=== PATIENT | female | born 1960 | race Caucasian/White ===

== ENCOUNTER 2020-08-30 22:09 | Emergency (ER) | payer BC ==
[~2020-08-30] VITALS: Ht 170.2 cm; Wt 136.1 kg
[2020-08-30] MEDS ORDERED: VENL25 (22:35)
[2020-08-30] MEDS ORDERED: EUTHYROX50 MCG (22:35)
[2020-08-30 22:57] LABS: BASOPHILS ABSOLUTE AUTO 0.03 K/mm3 (0.00-0.23); BASOPHILS PERCENT AUTO 1 % (0-2); EOSINOPHILS PERCENT AUTO 0 % (0-6); Hematocrit 45.1 % (33.0-51.0); Hemoglobin 14.7 g/dL (11.5-16.0); IMMATURE GRAN ABSOLUTE AUTO 0.07 K/mm3 (0.00-0.10); IMMATURE GRAN PERCENT AUTO 1 % (0-1); LYMPHOCYTES ABSOLUTE AUTO 1.47 K/mm3 (0.84-5.20); LYMPHOCYTES PERCENT AUTO 27 % (21-46); MONOCYTES ABSOLUTE AUTO 0.44 K/mm3 (0.16-1.47); MONOCYTES PERCENT AUTO 8 % (4-13); Mean Corpuscular HGB 28.2 pg (26.0-34.0); Mean Corpuscular HGB Conc 32.6 g/dL (31.5-36.5); Mean Corpuscular Volume 86 fL (80-100); Mean Platelet Volume 11.2 fL (9.1-12.4); NEUTROPHILS ABSOLUTE AUTO 3.38 K/mm3 (1.96-9.15); NEUTROPHILS PERCENT AUTO 63 % (41-73); Platelet Count 165 K/mm3 (150-400); RDW Coefficient Variation 13.6 % (11.7-14.2); RDW Standard Deviation 43.7 fL (35.1-46.3); Red Blood Cell Count 5.22 M/mm3 (3.80-5.20); White Blood Cell Count 5.39 K/mm3 (4.00-11.30)
[2020-08-30 23:18] LABS: Alanine Aminotransfer (ALT/SGP 33 U/L (12-78); Albumin, Blood 3.1 g/dL (3.4-5.0); Albumin/Globulin Ratio 0.8 (0.8-1.8); Alk Phos 79 U/L (50-136); Anion Gap 8 mmol/L (6-16); Aspartate Aminotrans (AST/SGOT 26 U/L (12-37); Bilirubin, Total 0.4 mg/dL (0.1-1.0); Blood Urea Nitrogen 21 mg/dL (8-24); Bun/Creatinine Ratio 18.8 (12.0-20.0); CO2, Blood 25 mmol/L (21-32); Calcium, Blood 8.2 mg/dL (8.5-10.1); Chloride, Blood 103 mmol/L (98-108); Creatinine, Blood 1.12 mg/dL (0.40-1.00); Globulin, Blood 3.7 g/dL (2.2-4.0); Glomerular Filtration Rate 53 (60-); Glucose, Blood 145 mg/dL (70-99); Potassium, Blood 4.2 mmol/L (3.5-5.5); Sodium, Blood 136 mmol/L (136-145); Total Protein, Blood 6.8 g/dL (6.4-8.2); Troponin I <0.015 ng/mL (0.000-0.040)
== END 2020-08-31 01:45 | disposition home or self-care (01) ==
LOC: ER 22:09
PROVIDERS: Student in an Organized Health Care Education/Training Program
DX: U07.1 COVID-19 (principal); R09.02 Hypoxemia; R53.1 Weakness; Z88.0 Allergy status to penicillin; Z88.1 Allergy status to other antibiotic agents; Z79.899 Other long term (current) drug therapy
CPT/HCPCS: 71045; 80053; 84484; 85025; 93005; 93010; 99285-25; J7120

== ENCOUNTER 2020-09-05 18:34 | Inpatient (IN) | payer BC ==
[~2020-09-05] VITALS: Ht 170.2 cm; Wt 134.5 kg
[~2020-09-05 18:34] MED LIST: EUTHYROX50 MCG; VENL25
[2020-09-05 20:07] LABS: BASOPHILS ABSOLUTE AUTO 0.04 K/mm3 (0.00-0.23); BASOPHILS PERCENT AUTO 1 % (0-2); EOSINOPHILS ABSOLUTE AUTO 0.02 K/mm3 (0.00-0.68); EOSINOPHILS PERCENT AUTO 0 % (0-6); Hematocrit 44.8 % (33.0-51.0); Hemoglobin 14.4 g/dL (11.5-16.0); IMMATURE GRAN ABSOLUTE AUTO 0.09 K/mm3 (0.00-0.10); IMMATURE GRAN PERCENT AUTO 2 % (0-1); LYMPHOCYTES ABSOLUTE AUTO 1.66 K/mm3 (0.84-5.20); LYMPHOCYTES PERCENT AUTO 27 % (21-46); MONOCYTES ABSOLUTE AUTO 0.33 K/mm3 (0.16-1.47); MONOCYTES PERCENT AUTO 5 % (4-13); Mean Corpuscular HGB 27.7 pg (26.0-34.0); Mean Corpuscular HGB Conc 32.1 g/dL (31.5-36.5); Mean Corpuscular Volume 86 fL (80-100); NEUTROPHILS ABSOLUTE AUTO 4.02 K/mm3 (1.96-9.15); NEUTROPHILS PERCENT AUTO 65 % (41-73); RDW Coefficient Variation 13.7 % (11.7-14.2); RDW Standard Deviation 43.5 fL (35.1-46.3); Red Blood Cell Count 5.19 M/mm3 (3.80-5.20); White Blood Cell Count 6.16 K/mm3 (4.00-11.30)
[2020-09-05 20:10] LABS: Platelet Count 131 K/mm3 (150-400)
[2020-09-05 21:06] LABS: Alanine Aminotransfer (ALT/SGP 25 U/L (12-78); Albumin, Blood 2.7 g/dL (3.4-5.0); Albumin/Globulin Ratio 0.6 (0.8-1.8); Alk Phos 74 U/L (50-136); Anion Gap 6 mmol/L (6-16); Aspartate Aminotrans (AST/SGOT 32 U/L (12-37); Bilirubin, Total 0.4 mg/dL (0.1-1.0); Blood Urea Nitrogen 20 mg/dL (8-24); Bun/Creatinine Ratio 20.5 (12.0-20.0); CO2, Blood 31 mmol/L (21-32); Chloride, Blood 97 mmol/L (98-108); Creatinine, Blood 0.98 mg/dL (0.40-1.00); Globulin, Blood 4.3 g/dL (2.2-4.0); Glomerular Filtration Rate >60 (60-); Glucose, Blood 107 mg/dL (70-99); Potassium, Blood 3.8 mmol/L (3.5-5.5); Sodium, Blood 134 mmol/L (136-145)
[2020-09-05] MEDS ORDERED: SYNTHROID125 MC1 PO (21:18)
[2020-09-05] MEDS ORDERED: VENL75ER PO (21:18)
[2020-09-05 23:38] LABS: SARS-Cov-2 (COVID-19) PCR, MMC Positive (NEGATIVE)
[2020-09-05 23:39] LABS: Influenza A, PCR Negative (NEGATIVE); Influenza B, PCR Negative (NEGATIVE); Resp Syncytial Virus, PCR Negative (NEGATIVE)
--- NOTE | 2020-09-06 02:40 | NUR ---
ASSESSMENT/ADMIT 2320 PT ARRIVED VIA GURNEY TO ICU 05. DX PNEUMONIA, COVID. TRANSFERED TO BED BY STAFF WITH SLIDER SHEET. PT AWAKE AND A&O X4. SPEECH CLEAR. LUNGS COARSE AND DECREASED IN THE BASES. PT ON 5 LITER O2 VIA NC, WITH SPO2 83%. RT PLACED PT ON HIGH FLOW NC THAN CHANGED TO AIRVO 60 LITER 71%. SPO2 UP TO 94%. PT WITH NPC. HEART RATE REGULAR. BP STABLE. IV LEFT HAND 20G SALINE LOCKED, SITE CLEAR AND FLUSHED WITHOUT DIFFICULTY. IV 20G TO RIGHT FOREARM FLUSHED WITHOUT DIFFICULTY. NS AT 75 ML/HR FOR ONE LITER STARTED. TEMP 102.1, MED WITH TYLENOL. 0015 PT SELF PRONING WITH AIRVO ON. SPO2 94-96%. 0230 PT CONT TO SELF PRONE. AIRVO DOWN TO 60 LITERS 60%.
[2020-09-06 03:30] LABS: BASOPHILS ABSOLUTE AUTO 0.02 K/mm3 (0.00-0.23); BASOPHILS PERCENT AUTO 0 % (0-2); EOSINOPHILS PERCENT AUTO 0 % (0-6); Hematocrit 40.3 % (33.0-51.0); IMMATURE GRAN ABSOLUTE AUTO 0.09 K/mm3 (0.00-0.10); IMMATURE GRAN PERCENT AUTO 2 % (0-1); LYMPHOCYTES ABSOLUTE AUTO 0.88 K/mm3 (0.84-5.20); LYMPHOCYTES PERCENT AUTO 14 % (21-46); MONOCYTES ABSOLUTE AUTO 0.31 K/mm3 (0.16-1.47); MONOCYTES PERCENT AUTO 5 % (4-13); Mean Corpuscular HGB Conc 32.3 g/dL (31.5-36.5); Mean Corpuscular Volume 87 fL (80-100); Mean Platelet Volume 10.7 fL (9.1-12.4); NEUTROPHILS ABSOLUTE AUTO 4.83 K/mm3 (1.96-9.15); NEUTROPHILS PERCENT AUTO 79 % (41-73); Platelet Count 237 K/mm3 (150-400); RDW Coefficient Variation 13.7 % (11.7-14.2); RDW Standard Deviation 43.1 fL (35.1-46.3); Red Blood Cell Count 4.65 M/mm3 (3.80-5.20); White Blood Cell Count 6.13 K/mm3 (4.00-11.30)
[2020-09-06 03:47] LABS: Alanine Aminotransfer (ALT/SGP 23 U/L (12-78); Albumin, Blood 2.4 g/dL (3.4-5.0); Albumin/Globulin Ratio 0.6 (0.8-1.8); Alk Phos 70 U/L (50-136); Anion Gap 7 mmol/L (6-16); Aspartate Aminotrans (AST/SGOT 25 U/L (12-37); Bilirubin, Total 0.4 mg/dL (0.1-1.0); Blood Urea Nitrogen 19 mg/dL (8-24); Bun/Creatinine Ratio 19.5 (12.0-20.0); CO2, Blood 28 mmol/L (21-32); Calcium, Blood 8.7 mg/dL (8.5-10.1); Chloride, Blood 101 mmol/L (98-108); Creatinine, Blood 0.98 mg/dL (0.40-1.00); Globulin, Blood 4.3 g/dL (2.2-4.0); Glomerular Filtration Rate >60 (60-); Glucose, Blood 170 mg/dL (70-99); Potassium, Blood 4.4 mmol/L (3.5-5.5); Sodium, Blood 136 mmol/L (136-145); Total Protein, Blood 6.7 g/dL (6.4-8.2)
--- NOTE | 2020-09-06 05:54 | NUR ---
SHIFT SUMMARY PT ADMITTED TO ICU DURING THE NIGHT. A&O. SELF PRONINNG. PLACED ON AIRVO TO KEEP SPO2 ABOVE 90%. AIRVO CURRENTLY AT 55 LITERS AND 50%. LUNGS COARSE AND DECREASED. NONPRODUCTIVE COUGH. HEART RATE AND BP STABLE. PT HAD FEVER 102.1, MED WITH TYLENOL. NOW TEMP 96.9. PT TURNING AND MOVING SELF IN BED. IV FLUID NS AT 75 ML/HR INFUSING FOR ONE LITER. PT SLEEPING ON SIDE AT THIS TIME. REPORT TO ON COMING NURSE
--- NOTE | 2020-09-06 08:45 | NUR ---
ASSUMED CARE RECEIVED REPORT FROM GENI FULLER - WHO GOT REPORT FROM GENI LUNA. PT IS LYING AWAKE IN BED, SUPINE - JUST BEFORE COMING INTO ROOM PT WAS HAVING PERIODS OF DESATTING (SPO2 DOWN TO LOW-MID 80s) THAT WOULD COME RIGHT BACK UP TO THE LOW 90s% RANGE. POSSIBLE SLEEP APNEA. SHE IS ALERT AND ORIENTED X 4, C/O COUGH, PAIN ASSOCIATED WITH COUGH (RELIEVED BY NOT COUGHING), SHORTNESS OF BREATH WITH EXERTION, AND EVEN MILD SOB AT REST. STABLE VITALS, MAP > 65, SPOW > 90% AT REST. AIRVO IS ON AT 55L, 50% FIO2. BED LOW AND LOCKED. CALL LIGHT WITHIN REACH.
--- NOTE | 2020-09-06 10:13 | NUR ---
UPDATE PT WAS REPOSITIONED IN BED, BOOSTED, AND SITTING UP CURRENTLY, PER PT REQUEST. AFTER REPOSITIONING AND USING THE BED PRITCHETT (VOIDING GABRIEL URINE) PT SPO2 DID DROP TO THE 79-85% RANGE - SHE DID INCREASE HER RR FROM 18-23 TO 25-30; TO GIVE HER SOME MORE SUPPORT THE FIO2 WAS INCREASED TO 60%. SPO2 RECOVERED AFTER A FEW MINUTES TO 88-90%, AND IS NOW CURRENTLY 94-96%. PT IS OPEN TO A PRONING SCHEDULE, BUT HAS STATED THAT IT IS NOT COMFORTABLE FOR HER. PT EDUCATED ON THE BENEFITS OF PRONING. CURRENTLY DEVELOPING A "PRONING SCHEDULE" AT THIS MOMENT. PT CONTINUES TO DENY CHEST PAIN UNLESS COUGHING. COUGH HAS BEEN FAIRLY DRY AND SHE HAS ONLY COUGHED UP MINIMAL CLEAR, THIN SPUTUM - SAMPLE SENT TO LAB. NO BM OF YET. BED LOW AND LOCKED. CALL LIGHT WITHIN REACH.
--- NOTE | 2020-09-06 15:55 | NUR ---
UPDATE PT ASSISTED IN PRONE POSITIONING AT 1410, ELECTRODES PLACED ON BACK. SHE IS ON AIRVO 55L, FIO2 60% - SPO2 IS CURRENTLY 92-94%. INITIALLY PT WAS DESATTING WITH REPOSITIONING AND THE BATH, DOWN TO SPO2 789-85% -- FIO2 WAS TURNED UP TO 70%, BUT WHEN PT GOT SETTLED IN THE PRONE POSITIONING AND WAS RESTING HER SPO2 INCREASED QUICKLY TO THE LOW TO MID 90s - SO FIO2 DECREASED TO 60% BY RT. PT TOLERATING IT WELL, BUT WOULD PREFER TO BE ON HER SIDE. WILL CONTINUE TO MONITOR.
--- NOTE | 2020-09-06 17:48 | NUR ---
SHIFT SUMMARY NO MAJOR CHANGES T/O SHIFT. PT ON AIRVO 55L, 60% FIO2 -- SPO2 MAINLY IN THE LOW 90s%. DYSPNEIC WITH EXERTION & WILL DESAT INTO 78-85% RANGE, BUT DOES RECOVER AFTER SEVERAL MINUTES OF REST AND DEEP BREATHING, WILL OFTEN NEED REMINDERS. SHE HAS A DRY, NONPRODUCTIVE COUGH THAT DOES GIVE HER DISCOMFORT /CHEST PAIN AND SHE WILL OFTEN COUGH MORE WHEN SHE IS REPOSITIONING. WHEN SHE IS DYSPNEIC HER RR WILL INCREASE TO 25-35. HEMODYNAMICS ARE STABLE, HR 80-90s, MAP > 65, SPO2 PLETH LOOKS GREAT. PT HAS USED BEDPAN TWICE TODAY FOR A TOTAL OF 650 ML OF URINE OUTPUT, AND A SMALL SOFT/UNFORMED/BROWN BM, WHICH IS A CHANGE FROM HER PREVIOUS WATER BMs AT HOME THIS LAST WEEK OR SO. PT SOMETIMES C/O OF SCIATICA, THAT RADIATES DOWN HER RLE - BUT HAS BEEN DENYING ANY PAIN T/O DAY. SHE HAS PREVIOUSLY HAD GOUT IN HER LEFT BIG TOE, AND WAS ON A MEDICATION - THAT SHE CANT REMEMBER FOR A TEMPORARY PERIOD OF TIME - CURRENTLY DENIES PAIN IN THE TOE. SHE HAS HAD A VERY POOR APPETITE, BUT WAS ABLE TO EAT SOME FOR LUNCH, INCLUDING ENSURE ENLIVE AND YOGURT. DR. GATES ORDERED MELATONIN FOR BEDTIME PT HAS BEEN HAVING ISSUES WITH SLEEP THIS LAST WEEK, AND ESPECIALLY LAST NIGHT. SHE CAN REPOSITION HERSELF, BUT WHEN SHE PRONES - SHE DOES NEED HELP MANAGING HER CHORDS, TELLY ELECTRODES, ETC... TODAY SHE PRONED FROM [id number], TOLERATING IT VERY WELL SPO2 93-94%. PT HAD TO USE BATHROOM AND AFTER WAS POSITIONED ON HER LEFT SIDE DUE TO PT REQUEST/COMFORT. SPO2 CURRENTLY 89-90% (AFTER SEVERAL MINUTES OF RECOVERY AFTER DESATTING D/T REPOSITIONING/USING THE BED). AND PT DID DISCUSS PLAN OF CARE TODAY WITH DR. GATES. SHE HAS BEEN HAVING A TOUGH TIME TODAY, BUT COPING WELL MENTALLY FAR I CAN TELL, HAVING A GOOD MINDSET, PRAYING, AND STILL HAS HER SENSE OF HUMOR - PER ON THE PHONE CALL. BED LOW AND LOCKED. CALL LIGHT WITHIN REACH.
--- NOTE | 2020-09-06 19:15 | NUR ---
ASSUMPTION OF CARE RECIEVED REPORT FROM BECKIE ARECHIGA, ASSUMED CARE OF PATIENT. PATIENT A/O, LAYING ON LEFT SIDE. DENYING DISCOMFORTS, NO S/S OF RESP DISTRESS. AIRVO IN PLACE AT 50L 60%, SATS ABOVE 90%. FULL LIQUID DINNER TRAY PROVIDED. PATIENT INDEPENDENTLY FEEDING SELF WITH NO CONCERNS. VITALS STABLE, ORIENTED TO ROUNDING AND CALL LIGHT. WILL REVIEW ORDERS AND TREAT PRESCRIBED.
--- NOTE | 2020-09-06 21:02 | NUR ---
02 SATS PATIENT WITH SATS MAINTAINING AT 85%, REPOSITIONED TO RIGHT SIDE, PATIENT TOLERATED WELL. SATS INCREASED TO 92%, NO CHANGES TO AIRVO SETTINGS.
--- NOTE | 2020-09-07 | NUR ---
REASSESSMENT NO ACUTE CHANGES FROM PREVIOUS ASSESSMENT. PATIENT REMAINS IN PRONE POSITION, TOLERATING WELL. AIRVO REMAINS AT 50L, 60%. VITAL STABLE. CALL LIGHT IN REACH.
[2020-09-07 03:36] LABS: Hematocrit 39.8 % (33.0-51.0); Hemoglobin 12.9 g/dL (11.5-16.0); Mean Corpuscular HGB 27.8 pg (26.0-34.0); Mean Corpuscular HGB Conc 32.4 g/dL (31.5-36.5); Mean Corpuscular Volume 86 fL (80-100); RDW Standard Deviation 40.6 fL (35.1-46.3); Red Blood Cell Count 4.64 M/mm3 (3.80-5.20); White Blood Cell Count 7.58 K/mm3 (4.00-11.30)
[2020-09-07 03:39] LABS: Mean Platelet Volume 11.6 fL (9.1-12.4); Platelet Count 59 K/mm3 (150-400)
[2020-09-07 03:50] LABS: Anion Gap 6 mmol/L (6-16); Blood Urea Nitrogen 22 mg/dL (8-24); Bun/Creatinine Ratio 25.7 (12.0-20.0); CO2, Blood 28 mmol/L (21-32); Calcium, Blood 8.3 mg/dL (8.5-10.1); Chloride, Blood 105 mmol/L (98-108); Creatinine, Blood 0.86 mg/dL (0.40-1.00); Glomerular Filtration Rate >60 (60-); Glucose, Blood 159 mg/dL (70-99); Potassium, Blood 4.6 mmol/L (3.5-5.5); Sodium, Blood 139 mmol/L (136-145)
--- NOTE | 2020-09-07 04:00 | NUR ---
REASSESSMENT NO ACUTE CHANGES FROM PREVIOUS ASSESSMENT. PATIENT TOLERATED PRONING WELL, REPOSITIONED ON SIDES FOR COMFORT. MAINTAINING SATS WITH NO CHANGES TO AIRVO. PATIENT DENIES NEEDS, CALL LIGHT IN REACH.
--- NOTE | 2020-09-07 06:22 | NUR ---
SHIFT SUMMARY NO ACUTE CHANGES THROUGH SHIFT. AIRVO SETTINGS 55L, 60%. SATS AT 94%. PATIENT DECLINED TO PRONE AGAIN FOR THIS SHIFT, BUT HAS TOLERATED LAYING ON HER SIDES. VITALS HAVE REMAINED STABLE THROUGH SHIFT, MEDICATIONS PROVIDED CHARTED. IVF INFUSING ORDERED. WILL CONTINUE TO MONITOR AND REPORT TO ONCOMING RN.
--- NOTE | 2020-09-07 06:50 | NUR ---
PRONING PRONED PATIENT AT 0645, TOLERATING WELL, SATS AT 93%. CALL LIGHT IN REACH.
--- NOTE | 2020-09-07 09:30 | NUR ---
PT UP TO CHAIR WITH ONE PERSON ASSIST. ON AIRVO. HAD TO INCREASE TO FIO2 70% FOR EXERTION. SPO2 DROPS INTO 80'S BUT WHEN PT IS RELAXED IN THE CHAIR IT COMES UP TO 90'S. NO SIGN OF DISTRESS.
--- NOTE | 2020-09-07 18:07 | NUR ---
SUMMARY PT DID WELL TODAY. WAS ABLE TO SIT IN CHAIR PART OF THE DAY. REQUIRES 70% FIO2 WHILE IN CHAIR, BUT AFTER GOING BACK TO BED WAS ABLE TO TITRATE FIO2 BACK DOWN TO 60%. PT IS SELF PRONING WHILE IN BED AND WILL ADJUST FROM SIDE TO SIDE. NO OTHER CHANGES TODAY.
--- NOTE | 2020-09-07 19:15 | NUR ---
ASSUMPTION OF CARE RECIEVED REPORT FROM JOY ARECHIGA, ASSUMED CARE OF PATIENT. PATIENT A/O, IN BED FINISHING DINNER. AIRVO IN PLACE WITH SETTINGS 55L AND 60%, SATS IN LOW 80'S. VITALS OTHERWISE STABLE. PATIENT DENYING NEEDS OR DISCOMFORTS, STATES FEELS MUCH BETTER TODAY. CELL PHONE PROVIDED TO PATIENT AND PATIENT TOLERATED A PHONE CONVERSATION WITH . WILL REVIEW ORDERS AND TREAT PRESCRIBED. CALL LIGHT IN REACH.
--- NOTE | 2020-09-08 | NUR ---
REASSESSMENT NO ACUTE CHANGES FROM PREVIOUS ASSESSMENT. PATIENT CONTINUES PRONING, TOLERATING WELL. VITALS STABLE AIRVO TO 55L, 60%. CALL LIGHT IN REACH.
[2020-09-08 03:36] LABS: BASOPHILS ABSOLUTE AUTO 0.01 K/mm3 (0.00-0.23); BASOPHILS PERCENT AUTO 0 % (0-2); EOSINOPHILS PERCENT AUTO 0 % (0-6); Hematocrit 38.7 % (33.0-51.0); Hemoglobin 12.4 g/dL (11.5-16.0); IMMATURE GRAN ABSOLUTE AUTO 0.19 K/mm3 (0.00-0.10); IMMATURE GRAN PERCENT AUTO 2 % (0-1); LYMPHOCYTES ABSOLUTE AUTO 1.09 K/mm3 (0.84-5.20); LYMPHOCYTES PERCENT AUTO 13 % (21-46); MONOCYTES ABSOLUTE AUTO 0.47 K/mm3 (0.16-1.47); MONOCYTES PERCENT AUTO 6 % (4-13); Mean Corpuscular HGB 27.8 pg (26.0-34.0); Mean Corpuscular Volume 87 fL (80-100); Mean Platelet Volume 10.4 fL (9.1-12.4); NEUTROPHILS ABSOLUTE AUTO 6.59 K/mm3 (1.96-9.15); NEUTROPHILS PERCENT AUTO 79 % (41-73); Platelet Count 355 K/mm3 (150-400); RDW Coefficient Variation 13.2 % (11.7-14.2); RDW Standard Deviation 41.7 fL (35.1-46.3); Red Blood Cell Count 4.46 M/mm3 (3.80-5.20); White Blood Cell Count 8.35 K/mm3 (4.00-11.30)
[2020-09-08 03:58] LABS: Anion Gap 4 mmol/L (6-16); Blood Urea Nitrogen 21 mg/dL (8-24); Bun/Creatinine Ratio 23.8 (12.0-20.0); CO2, Blood 28 mmol/L (21-32); Calcium, Blood 8.3 mg/dL (8.5-10.1); Chloride, Blood 106 mmol/L (98-108); Creatinine, Blood 0.88 mg/dL (0.40-1.00); Glomerular Filtration Rate >60 (60-); Glucose, Blood 139 mg/dL (70-99); Potassium, Blood 4.6 mmol/L (3.5-5.5); Sodium, Blood 138 mmol/L (136-145)
--- NOTE | 2020-09-08 04:00 | NUR ---
REASSESSMENT NO ACUTE CHANGES FROM PREVIOUS ASSESSMENT. PATIENT STANDBY ASSIST TO COMMODE, TOLERATED WELL. PRODUCTIVE COUGH WITH ACTIVITY, SATS MAINTAINED 90% WITHOUT AN INCREASE IN AIRVO SETTINGS. VITALS REMAIN STABLE. CALL LIGHT IN REACH.
[2020-09-08 04:48] LABS: PCO2 Arterial 42.6 mmHg (35-45); PO2 Arterial 47.8 mmHg (80-100); pH Blood Arterial 7.41 (7.35-7.45)
--- NOTE | 2020-09-08 06:13 | NUR ---
SHIFT SUMMARY ASSESSMENT REMAINED UNCHANGED THROUGH NIGHT. AIRVO SETTINGS INCREASED AFTER ABG RESULTS TO 70%. VITALS REMAINED STABLE THROUGH NIGHT. PATIENT TOLERATED TWO ASSISTS TO COMMODE. DESATS WITH ACTIVITY BUT RECOVERS QUICKLY. PATIENT DENIES DISCOMFORTS OR NEEDS. CALL LIGHT IN REACH. WILL REPORT TO ONCOMING RN.
--- NOTE | 2020-09-08 10:25 | NUR ---
PT A/O X4, ON AIRVO 50L FIO2 70%. SPO2 DROPS TO 85% WITH ANY EXERTION BUT IS RECOVERING WELL AT REST. GOT PT UP TO BSC THEN RECLINER CHAIR. PT ABLE TO BRUSH HER TEETH. NO SIGN OF DISTRESS. CALL LIGHT IN REACH.
--- NOTE | 2020-09-08 18:54 | NUR ---
SUMMARY PT HAD A GOOD DAY. GOT UP TO CHAIR FOR AWHILE AND TOLERATED WELL. ABLE TO TITRATE AIRVO DOWN TO 50L 60%. HAS NOT PRONED YET TODAY BUT STATES SHE WILL TONIGHT. NO SIGN OF DISTRESS. NO OTHER CHANGES.
--- NOTE | 2020-09-09 00:14 | NUR ---
ASSUMED CARE NOTE: ASSUMED CARE OF PT AT 1900, RECEVIED REPORT FROM BECKIE ARECHIGA. PT IS ALERT AND ORIENTEDX4, ABLE TO FOLLOW COMMANDS. PT IS ON THE AIRVO 60L, 70% FiO2, SPO2 92% PT IS UP IN THE CHAIR. PT EXPERIENCES DYSPNEA WITH ACTIVITY. PT REQUIRES FiO2 TO BE INCREASED TO 80% WHEN AMBULATING. PT IS IN NSR WITH HR IN THE 70'S. BP STABLE. PT STS SHE HAS DULL RIB PAIN, DUE TO COUGHING. IS REQUESTING ACETAMIOPHEN AND MELATONIN AT 2200 FOR SLEEP AND TO AID WITH PRONING. WILL CONTINUE TO MONITOR PT.
[2020-09-09 04:47] LABS: BASOPHILS ABSOLUTE AUTO 0.05 K/mm3 (0.00-0.23); BASOPHILS PERCENT AUTO 1 % (0-2); EOSINOPHILS ABSOLUTE AUTO 0.01 K/mm3 (0.00-0.68); EOSINOPHILS PERCENT AUTO 0 % (0-6); Hematocrit 40.5 % (33.0-51.0); Hemoglobin 13.2 g/dL (11.5-16.0); IMMATURE GRAN ABSOLUTE AUTO 0.47 K/mm3 (0.00-0.10); IMMATURE GRAN PERCENT AUTO 5 % (0-1); LYMPHOCYTES ABSOLUTE AUTO 1.29 K/mm3 (0.84-5.20); LYMPHOCYTES PERCENT AUTO 13 % (21-46); MONOCYTES ABSOLUTE AUTO 0.52 K/mm3 (0.16-1.47); MONOCYTES PERCENT AUTO 5 % (4-13); Mean Corpuscular HGB 27.7 pg (26.0-34.0); Mean Corpuscular HGB Conc 32.6 g/dL (31.5-36.5); Mean Corpuscular Volume 85 fL (80-100); Mean Platelet Volume 10.2 fL (9.1-12.4); NEUTROPHILS ABSOLUTE AUTO 7.45 K/mm3 (1.96-9.15); NEUTROPHILS PERCENT AUTO 76 % (41-73); Platelet Count 412 K/mm3 (150-400); RDW Coefficient Variation 12.9 % (11.7-14.2); Red Blood Cell Count 4.77 M/mm3 (3.80-5.20); White Blood Cell Count 9.79 K/mm3 (4.00-11.30)
[2020-09-09 05:02] LABS: Anion Gap 5 mmol/L (6-16); Blood Urea Nitrogen 22 mg/dL (8-24); Bun/Creatinine Ratio 25.5 (12.0-20.0); CO2, Blood 28 mmol/L (21-32); Calcium, Blood 8.4 mg/dL (8.5-10.1); Chloride, Blood 102 mmol/L (98-108); Creatinine, Blood 0.86 mg/dL (0.40-1.00); Glomerular Filtration Rate >60 (60-); Glucose, Blood 139 mg/dL (70-99); Potassium, Blood 4.3 mmol/L (3.5-5.5); Sodium, Blood 135 mmol/L (136-145)
--- NOTE | 2020-09-09 06:16 | NUR ---
SHIFT SUMMARY PT A&O X4, PLEASANT & COOPERATIVE. PT VSS. MONITOR SHOWS SB-SR, HR 50's-60's. SPO2 > 90% ON AIRVO @ 50L, FIO2 60%. PT SOB W/ ANY ACTIVITY. FIO2 INCREASED TO 75% FOR PT TRANSFER [place] [facility] [place]AT TO 83%, THEN TITRATED BACK TO 60% UPON RECOVERY WHEN BACK IN BED. PT PRONING FOR APPROX 5 HRS THIS SHIFT, TOLERATING WELL. WILL CONTINUE TO MONITOR & PROVIDE CARE UNTIL REPORT OFF TO DAY SHIFT RN.
--- NOTE | 2020-09-09 08:22 | NUR ---
ASSUMED CARE RECEIVED REPORT FROM GENI BLAKE. PT IS SLEEPING IN BED ON AIRVO 50L, 60% FIO2. SHE IS IN SINUS MICHEAL, HR 50s. SPO2 IS IN THE HIGH 90s. SHE APPEARS COMFORTABLE AT THE PRESENT TIME. BED LOW AND LOCKED. CALL LIGHT WITHIN REACH.
--- NOTE | 2020-09-09 09:21 | NUR ---
UPDATE PT UP TO COMMODE AND BACK TO BED, DESATTING INTO THE LOW 80s% DOING SO, REQUIRING FIO2 TO BE TURNED UP TO 70% AFTER GETTING BACK TO BED AND RESTING SPO2 DID RECOVER TO 88-91%. PT NOW EATING BREAKFAST, FIO2 REMAINS AT 70% WHILE PT EATS - WILL TITRATE DOWN SOON POSSIBLE. PT C/O SORENESS IN RIBS/SIDES FROM COUGHING, BUT IS SAYING THE CHEST PAIN SHE GOT WHILE COUGHING HAS DECREASED THE LAST DAY OR SO. PT IS ALERT AND ORIENTED X 4, AND IS DOING WELL AT REST SPO2 97%+, DENIES SIGNIFICANT SOB AT REST. BED LOW AND LOCKED. CALL LIGHT WITHIN REACH.
--- NOTE | 2020-09-09 19:35 | NUR ---
SHIFT SUMMARY NO MAJOR EVENTS TODAY. PT ON AIRVO 50L AND 70% FIO2 (INCREASED FROM 60%, D/T EATING DINNER AND AMBULATING FROM BED TO CHAIR). SPO2 90-98% AT REST, DEPENDING ON IF SHE IS DOING SOMETHING IN BED OR IN THE CHAIR, BUT WITH AMBULATION, EATING, OR WHEN SHE IS ANXIOUS/WORRYING SHE WILL DESAT TO THE LOW-MID 80s%. PT DENIES ANY CHEST PAIN WITH COUGHING, BUT IS SORE IN HER RIBS AND SIDES - TYLENOL HAS HELPED. NO SPUTUM PRODUCTION, BUT PT STATES SHE FEELS THE CONGESTION "BREAKING". SHE DENIES SOB AT REST FOR THE MOST PART, BUT IS DYSPNEIC WITH ANY ACTIVITY. SINUS TO SINUS MICHEAL, 50-70 DEPENDING ON IF AWAKE OR ASLEEP, STABLE BP W/ MAP > 65. PT HAS BEEN GETTING UP TO COMMODE AND CHAIR WITH ONLY A SBA (MANAGING CHORDS) AND TOLERATES SMALL ACTIVITIES WELL, IF SHE HAS TIME TO RECOVER. NO MAJOR SKIN ISSUES. POWERGLIDE IN LULU DOES NOT DRAW BLOOD, BUT FLUSHES WELL. SHE GOT HER LAST DOSE OF REMDESIVIR TODAY. SHE HAS HAD AN ADEQUATE APPETITE, EATING MAJORITY OF HER MEALS. SHE HAD A FEW SMALL BMs TODAY. HER WHO IS COVID+ CAME INTO THE ER TODAY D/T WORSENING SYMPTOMS. SHE IS NERVOUS AND ANXIOUS WORRYING ABOUT HIM. SHE WAS PARTICULARLY UPSET WHEN SHE FOUND OUT THEY WERE TESTING HIM FOR A PE. BED LOW AND LOCKED. CALL LIGHT WITHIN REACH.
--- NOTE | 2020-09-10 05:51 | NUR ---
SHIFT SUMMARY: NO SIGNIFICANT CHANGES T/O SHIFT. PT REMAINS ON AIRVO 50L , 70% FiO2, SPO2 MAINTAINED ABOVE 90% . PT WAS PRONED FROM [id number]. PT HAS BEEN IN SINUS MICHEAL WITH HR IN THE 50'S WHILE SLEEPING. BP STABLE. PT RECEVIED ACETAMINOPHEN THIS SHIFT, WITH GOOD EFFECT. PT DENIES PAIN AT THIS TIME. PT GETTING UP TO BSC WITH 1 PERSON ASSIST. PT SPO2 DESATURATES INTO THE LOW 80'S WITH AMBULATION, RECOVERS WITHIN 5 MINUTES. PT REPOSITIONS SELF FROM SIDE TO SIDE. WILL CONTINUE TO MONITOR PT UNTIL REPORT IS GIVEN TO ONCOMING SHIFT.
--- NOTE | 2020-09-10 07:15 | NUR ---
ASSUMED CARE RECEIVED REPORT FROM GENI MATHUR. PER NOC NURSE PT HAD NO MAJOR EVENTS OVERNIGHT. CURRENTLY IN BED SLEEPING, ON AIRVO 50L, 70% FIO2 SPO2 94%. SINUS MICHEAL, HR IN THE 50s, MAP > 65. PT IS INDEPENDENT IN BED, REPOSITIONG SELF WELL. USES CALL LIGHT, (CALL LIGHT WITHIN REACH). BED LOW AND LOCKED.
--- NOTE | 2020-09-10 18:28 | NUR ---
ASSUMED CARE NO MAJOR CHANGES T/O SHIFT. PT REMAINS ON AIRVO 50L, 70% FIO2. DENIES SOB/DYSPNEA AT REST, BUT WITH EXERTION/ACTIVITY SHE BECOMES SOB AND TACHYPNEIC, AND HER SATs DROP INTO LOW 80s%. HOWEVER, DURING HER BATH THIS EVENING SHE WAS MAINTAINING LOW 90s% WITH LIGHT ACTIVITY - WHICH WAS A GREAT IMPROVEMENT. PT CURRENTLY IN RECLINER EATING DINNER. PT CONTINUES TO COUGH INTERMITTENTLY AND IS HAVING SORE RIBS/SIDES - HAS BEEN TAKING TYLENOL. PLANS TO PRONE TONIGHT WHILE SLEEPING. REPOSITIONING SELF IN BED, OR HAS BEEN SPENDING TIME SITTING UPRIGHT IN RECLINER TODAY.
--- NOTE | 2020-09-10 19:59 | NUR ---
ASSUMED CARE NOTE: ASSUMED CARE OF PT AT 1900, RECEVIED REPORT FROM BECKIE ARECHIGA. PT IS ALERT AND ORIENTEDX4. ABLE TO FOLLOW COMMANDS, AND COMMUNICATE NEEDS. PT IS UP IN CHAIR, FINISHING DINNER. PT IS ON AIRVO WITH SETTINGS AT 50L, FiO2 OF 60% SPO2 ABOVE 90% PT IN NSR WITH HR IN THE 70'S. PT STS SHE HAS RIB PAIN ON BOTH SIDE, R/T COUGHING. PT WILL RECEVIE PAIN MEDICATION ORDERED AT 2200, TO AID IN PRONING. WILL CONTINUE TO MONITOR PT T/O SHIFT.
--- NOTE | 2020-09-11 | NUR ---
UPDATE: PT IS DEVELOPING A RASH TO HER BUTTOCKS. STS SHE HAD A FUNGAL INFECTION THERE A FEW WEEKS AGO . STS IT HAD CLEARED UP THAT IT COMES AND GOES. WILL REQUEST NYSTATIN CREAM. RASH IS DRY, RED.
--- NOTE | 2020-09-11 05:38 | NUR ---
SHIFT SUMMARY: NO SIGNIFICANT CHANGES T/O SHIFT. PT CONTINUES TO BE ON AIRVO WITH SETTINGS AT 50L/MIN, FiO2 AT 60-70%, SPO2 REMAINED ABOVE 90% PT PRONED FROM [id number]. SPO2 INCREASED TO 98% WHILE PRONED. PT HAS BEEN IN NSR TO SINUS MICHEAL HR BETWEEN 50-70. BP STABLE. PT RECEVIED ACETAMINOPHEN AND MELATONIN BEFORE PRONING, WITH GOOD EFFECT. PT STS SHE RESTED WELL. PT UP TO BEDSIDE COMMODE THIS SHIFT, WITH MIINIMAL ASSISTANCE, NO SOB REPORTED, PT MAINTAINED SPO2 ABOVE 90% WILL CONTINUE TO MONITOR PT UNTIL REPORT IS GIVEN TO ONCOMING SHIFT.
--- NOTE | 2020-09-11 08:28 | NUR ---
ASSUMED CARE RECEIVED REPORT FROM GENI MATHUR. PT IS LYING IN BED, AWAKE, ALERT AND ORIENTED X 4. AIRVO ON 50L, 60% FIO2. SPO2 IN THE 90s%. PT SINUS MICHEAL TO SINUS RHYTHM, 50-60s. MAP > 65. AFEBRILE. RR < 24. BED LOW AND LOCKED. CALL LIGHT WITHIN REACH.
[2020-09-11 12:01] LABS: Hematocrit 42.9 % (33.0-51.0); Mean Corpuscular HGB 27.8 pg (26.0-34.0); Mean Corpuscular HGB Conc 32.6 g/dL (31.5-36.5); Mean Corpuscular Volume 85 fL (80-100); Platelet Count 432 K/mm3 (150-400); RDW Coefficient Variation 13.1 % (11.7-14.2); RDW Standard Deviation 40.3 fL (35.1-46.3); Red Blood Cell Count 5.04 M/mm3 (3.80-5.20); White Blood Cell Count 13.16 K/mm3 (4.00-11.30)
[2020-09-11 12:20] LABS: Anion Gap 6 mmol/L (6-16); Blood Urea Nitrogen 23 mg/dL (8-24); Bun/Creatinine Ratio 27.5 (12.0-20.0); CO2, Blood 29 mmol/L (21-32); Calcium, Blood 8.3 mg/dL (8.5-10.1); Chloride, Blood 101 mmol/L (98-108); Creatinine, Blood 0.84 mg/dL (0.40-1.00); Glomerular Filtration Rate >60 (60-); Glucose, Blood 127 mg/dL (70-99); Potassium, Blood 3.8 mmol/L (3.5-5.5); Sodium, Blood 136 mmol/L (136-145)
--- NOTE | 2020-09-11 18:45 | NUR ---
SUMMARY NO MAJOR CHANGES TO PT. AIRVO IS AT 60L, 50%, DOWN FROM 70% - SHE HAS MAINTAING SATs IN THE 90s% AT REST, AND INCREASINGLY TOLERANT OF ACTIVITY (SATs ARE MAINTAINED FOR LONGER). PT DENIES CHEST PAIN, AND DENIES SOB AT REST. SHE HAS BEEN GETTING UP TO COMMODE AND CHAIR WITH SBA T/O THE DAY - NO COMPLAINTS, OR DISCOMFORTS. SHE HAS BEEN HAVING INCREASING INTAKE. HAVING BMs AND VOIDING PLENTY - NO ABNORMALITIES HERE, NO DIARRHEA. SHE IS SUBJECTIVLEY FEELING BETTER, SHE STATED SHE WAS TODAY. SHE ATTENDED A [employer] SESSION, WHICH SHE REALLY ENJOYED. HAS A MILD RASH ON HER BUTTOCKS, AND PROXIMAL-POSTERIOR THIGHS THAT WAS ITCHING, HYDROCORTISONE WAS APPLIED AND RELIEVED THE ITCHING. YAJAIRA STATED THAT IF WE CAN TITRATE DOWN THE FIO2 TO BELOW 40% (AND HOPEFULLY CAN TITRATE DOWN THE 60 LPM* HE DIDN'T SPECIFICALLY MENTION THE LPM TO ME, THOUGH) THAT HE WOULD BE OKAY IF THE PT BECAME MEDICAL STATUS IF APPROPRIATE FOR THE MEDICAL COVID UNIT(?). BED LOW AND LOCKED. CALL LIGHT WITHIN REACH.
--- NOTE | 2020-09-11 19:00 | NUR ---
ASSUMED CARE OF PT NOTE: ASSUMED CARE OF PT AT 1900, RECEVIED REPORT FROM BECKIE ARECHIGA. PT IS ALERT AND ORIENTEDX4. ABLE TO COMMUNICATE NEEDS. PT ON AIRVO WITH SETTINGS AT 60L FiO2 AT 50% SPO2 ABOVE 90% PT DENIES ANY SOB AT THIS TIME. PT C/O RIB PAIN, WILL MEDICATE PER EMAR. PT IS IN NSR WITH HR IN THE 70'S. PT SITTING UP IN CHAIR. PT USED BSC, NOTICED HER BUTTOCKS WAS BECOMING MORE RED AND IRRITATED THAN YESTERDAY. PT STS SHE WANTS TO ASK FOR ANTI-FUNGAL CREAM, SHE HAS BEEN DEALING WITH THIS RASH OFF AND ON FOR 15 YEARS. WILL REQUEST NYSTATIN CREAM.
--- NOTE | 2020-09-12 05:29 | NUR ---
SHIFT SUMMARY: NO SIGNIFICANT CHANGES THIS SHIFT. PT CONTINUES TO BE ON AIRVO WITH SETTINGS AT 60L FIO2 50% PT HAS BEEN PRONED SINCE 2199. PT HAS NOT REQUIRED MORE OXYGEN WHEN AMBULATING IS ABLE TO MAINTAIN SPO2 ABOVE 90% CLEAR, DIM LUNG SOUNDS T/O. PT HAS BEEN IN SINUS MICHEAL, 50'S WHILE SLEEPING. PT HAS BEEN USING BEDSIDE COMMODE THIS SHIFT. NYSTATIN CREAM ORDERED FOR PT. WILL CONTINUE TO MONTIOR PT UNTIL REPORT IS GIVEN TO ONCOMING SHIFT.
--- NOTE | 2020-09-12 09:25 | NUR ---
PT UP TO CHAIR THIS AM FOR BREAKFAST AFTER USING BSC. JUST NEEEDS ASSISTANCE MANAGING LINES OTHERWISE INDEP. SOB HAS IMPROVED AND WEAKNESS HAS IMPROVED. TOOK PT OFF AIRVO AND PLACED 5L HFNC, SPO2 90-94%. PT ABLE TO EAT BREAKFAST WITHOUT DESATTING. CALL LIGHT IN REACH. NO SIGN OF DISTRESS.
--- NOTE | 2020-09-12 18:29 | NUR ---
SUMMARY PT DID WELL TODAY ON 5L NC. WILL DESAT ONLY BRIEFLY WHILE AMBULATING TO 87% BUT RECOVERS QUICKLY WHEN AT REST. SOB HAS GREATLY IMPROVED. UP TO CHAIR FOR MEALS. NO OTHER CHANGES THIS SHIFT.
--- NOTE | 2020-09-12 20:52 | NUR ---
ASSUMED CARE NOTE: ASSUMED CARE OF PT AT 1900, RECEVIED REPORT FROM JOY ARECHIGA. PT IS ALERT AND ORIENTEDX4, ABLE TO COMMUNICATE NEEDS. PT IS ON 5L OF O2 VIA HFNC, SPO2 AT 92% PT IS IN NSR WITH HR IN THE 70'S. BP STABLE. PT STS HER RIBS STILL CONTINUE TO BE PAINFUL DUE TO COUGHING. WILL MEDICATE WITH MELATONIN AND ACETAMINOPHEN AT BEDTIME SHE REQUESTED. PT IS UP IN CHAIR, NO RESPRIATORY DISTRESS NOTED. WILL CONTINUE TO MONITOR, CALL LIGHT WITHIN REACH
--- NOTE | 2020-09-13 01:05 | NUR ---
REPORT GIVEN TO ORI ARECHIGA, PT TRANSPORTED VIA BED TO ROOM 313 ON VIA IA. PT ORIENTED TO ROOM.
--- NOTE | 2020-09-13 01:07 | NUR ---
PT TRANSFER PT ARRIVED TO FLOOR VIA ICU BED W ICU NURSE ANGELA AND VANESSA. PT SELF TRANSFERED TO MEDICAL FLOOR BED W MINOR DYSPNEA BUT MAINTAINED O2 SATS >92 ON 5L NC. PT WAS ORIENTED TO RM AND CALL LIGHT. ASSESSMENT SHOWED NOTHING NEW FROM REPORT AND PT REQUESTED TO HAVE LIGHTS OUT AND BE LEFT ALONE TO SLEEP. PT IS AXO, BED ALARM ON AND BED IN LOWEST POSITION. WCTM.
--- NOTE | 2020-09-13 04:29 | NUR ---
LIME KILN WORKER SUMMARY PT ARRIVED ON UNIT FROM ICU AND WAS ABLE TO GET HERSELF INTO THE MED FLOOR BED WITHOUT ASSISTANCE. PT HAS O2 SATS >92 ON 5L NC. PT HAS SLEPT FOR MOST OF THE NIGHT ON THIS FLOOR SHE TOOK HER NIGHT TIME MELETONIN BEFORE TRANSFERING FROM THE ICU. [place]
--- NOTE | 2020-09-13 16:30 | NUR ---
SHIFT SUMMARY- A/O, PLESANT AND COOPERATIVE. SHE IS EATING AND DRINKING WELL. SHE IS USING THE BSC. SHE TOOK A SHOWER THIS SHIFT. SHE REPORTS BEGINNING TO FEEL BETTER. HER LUNG SOUNDS ARE DIMINISHED. AND SHE GETS SHORT OF BREATH WITH EXERTION. HER BED IS IN THE LOW POSITION AND CALL LIGHT IS WITHIN REACH.
--- NOTE | 2020-09-14 06:43 | NUR ---
SHIFT SUMMARY PT IS A 60 Y/O FEMALE, ADMITTED FOR PNA R/ COVID AND CURRENTLY IN ENHANCED PRECAUTIONS FOR COVID-19. SHE IS A&O X 4, SBA TO THE BATHROOM. CURRENTLY ON 5L OF O2 VIA NC. VITAL SIGNS STABLE. NO C/O ACUTE PAIN, NAUSEA OR SOB. NO ACUTE CHANGES IN PT CONDITION NOTED. PT SLEPT WELL THROUGH THE NIGHT. WILL CONTINUE TO MONITOR AND TREAT PER EMAR UNTIL HAND OFF TO DAY SHIFT RN.
--- NOTE | 2020-09-14 17:09 | NUR ---
SHIFT SUMMARY PT IS AOX4 AND PLEASANT. PT DENIES N/V. PT MEDICATED FOR PAIN X1 THIS SHIFT PER EMAR. PT O2 CURRENTLY ON 4.5 L VIA NC WITH SATS IN THE 92-94% RANGE. PT UP IN ROOM WITH STANDBY ASSIST. PLAN IS TO CONTINUE TO TITRATE O2 DOWN TO BASELINE. POWERGLIDE DRESSING CHANGE DONE THIS SHIFT. NO VISITORS IN TODAY. PT APPETITE IS GOOD. PT IS IN BED, CALL LIGHT IN REACH, LOW POSITION. ENHANCED COVID ISOLATION PRECAUTIONS MAINTAINED THROUGHOUT SHIFT.
--- NOTE | 2020-09-15 04:34 | NUR ---
PRODUCE SHIPPER SUMMARY A/OX4, IND IN ROOM. CURRENTLY ON 4L WITH SATS GREATER THAN 92, CONT BIOX IN PLACE. VSS. NO ACUTE CHANGES AT THIS TIME. BED IN LOWEST POSITION WITH CALL LIGHT IN REACH. WILL CONTINUE TO MONITOR AND REPORT TO ONCOMING RN
--- NOTE | 2020-09-15 12:13 | NUR ---
DISCHARGE NOTE THIS RN REMOVED PT'S POWERGLIDE FROM LULU PER DOCUMENTATION. PT IS AOX4 AT DC. TETO BROUGHT PT'S HOME O2 TANK REFILL TO BE USED FOR TRANSPORTATION AND HOME. THIS RN ASSISTED PT INTO HOME CLOTHING AND WITH HOME O2 SET UP. THIS RN REVIEWED PT'S DC INSTRUCTIONS WITH PT WHO VERBALIZED AN UNDERSTANDING. THIS RN ATTEMPTED FOLLOW-UP APPOINTMENT, BUT DID NOT RECEIVE A CALL BACK, SO PT WILL SET UP DC APPOINTMENT. PT BELONGINGS PRESENT IN BELONGING BAGS UPON DC FROM UNIT. ENHANCED COVID ISOLATION MAINTAINED THROUGHOUT SHIFT AND AT DC. PT ASSISTED INTO WHEELCHAIR BY THIS RN AND LEFT UNIT WITH DC VOLUNTEER AT APPROXIMATELY 1145.
== END 2020-09-15 11:43 | disposition home or self-care (01) | DRG 177 ==
LOC: ER 18:34 → ERHOLD 21:55 → ICUE 23:14 → MEDS 09-13 00:48
PROVIDERS: Emergency Medicine; Family Medicine; Internal Medicine; ADMIT Internal Medicine
PROC: XW033E5 Introduction of Remdesivir Anti-infective into Peripheral Vein, Percutaneous Approach, New Technology Group 5 (ICD-10-PCS; principal; 2020-09-05)
DX: U07.1 COVID-19 (principal); J12.82 Pneumonia due to coronavirus disease 2019; J96.01 Acute respiratory failure with hypoxia; Z68.42 Body mass index [BMI] 45.0-49.9, adult; E03.9 Hypothyroidism, unspecified; E66.9 Obesity, unspecified; E86.0 Dehydration; F32.9 Major depressive disorder, single episode, unspecified; K52.9 Noninfective gastroenteritis and colitis, unspecified; D69.6 Thrombocytopenia, unspecified
CPT/HCPCS: 0241U; 36415; 36600; 71045; 80048; 80053; 82803; 83690; 83880; 85025; 85027; 87070; 87205; 87493; 93005; 93010; 94762; 96365; 96375; 99285-25; A9270; C1751; J1100; J1650; J2543; J7030

== ENCOUNTER 2024-06-16 22:34 | Emergency (ER) | payer BC ==
[~2024-06-16] VITALS: Ht 170.2 cm; Wt 145.2 kg
[~2024-06-16 22:34] MED LIST changes: +SYNTHROID125 MC1 PO; +VENL75ER PO
[2024-06-16 23:28] LABS: Albumin, Blood 3.9 g/dL (3.4-5.0); Albumin/Globulin Ratio 1.2 (0.8-1.8); Bilirubin, Total 0.4 mg/dL (0.1-1.0); Bun/Creatinine Ratio 21.2 (12.0-20.0); Calcium, Blood 9.2 mg/dL (8.5-10.1); Creatinine, Blood 1.04 mg/dL (0.40-1.00); Globulin, Blood 3.2 g/dL (2.2-4.0); Potassium, Blood 3.9 mmol/L (3.5-5.5); Total Protein, Blood 7.1 g/dL (6.4-8.2)
[2024-06-16 23:38] LABS: BASOPHILS ABSOLUTE AUTO 0.08 K/mm3 (0.00-0.23); BASOPHILS PERCENT AUTO 1 % (0-2); EOSINOPHILS ABSOLUTE AUTO 0.22 K/mm3 (0.00-0.68); EOSINOPHILS PERCENT AUTO 2 % (0-6); Hematocrit 42.5 % (33.0-51.0); Hemoglobin 14.4 g/dL (11.5-16.0); IMMATURE GRAN ABSOLUTE AUTO 0.07 K/mm3 (0.00-0.10); IMMATURE GRAN PERCENT AUTO 1 % (0-1); LYMPHOCYTES ABSOLUTE AUTO 2.94 K/mm3 (0.84-5.20); LYMPHOCYTES PERCENT AUTO 21 % (21-46); MONOCYTES ABSOLUTE AUTO 0.74 K/mm3 (0.16-1.47); MONOCYTES PERCENT AUTO 5 % (4-13); Mean Corpuscular HGB 28.7 pg (26.0-34.0); Mean Corpuscular HGB Conc 33.9 g/dL (31.5-36.5); Mean Corpuscular Volume 85 fL (80-100); Mean Platelet Volume 10.3 fL (9.1-12.4); NEUTROPHILS ABSOLUTE AUTO 9.69 K/mm3 (1.96-9.15); NEUTROPHILS PERCENT AUTO 71 % (41-73); Platelet Count 280 K/mm3 (150-400); RDW Coefficient Variation 13.7 % (11.7-14.2); RDW Standard Deviation 42.3 fL (35.1-46.3); Red Blood Cell Count 5.01 M/mm3 (3.80-5.20); White Blood Cell Count 13.74 K/mm3 (4.00-11.30)
[2024-06-17] MEDS ORDERED: NS 1,000 ML IV SCH (00:30)
[2024-06-17] MEDS ORDERED: Ketorolac Tromethamine 30mg Vial IV ONE (00:30)
[2024-06-17] MEDS ORDERED: DICY20 PO (02:25)
[2024-06-17] MEDS ORDERED: Ondansetron Odt8 MG MM (02:25)
[2024-06-17 03:00] VITALS: BP 122/55
== END 2024-06-17 03:06 | disposition home or self-care (01) ==
LOC: ER 22:34
PROVIDERS: Emergency Medicine
DX: R11.2 Nausea with vomiting, unspecified (principal); R19.7 Diarrhea, unspecified; R10.9 Unspecified abdominal pain; Z88.0 Allergy status to penicillin; Z88.1 Allergy status to other antibiotic agents; Z79.890 Hormone replacement therapy; Z79.899 Other long term (current) drug therapy
CPT/HCPCS: 74177; 80053; 83605; 85025; 93005; 93010; 96361; 96374-59; 99284-25; J1885; J7030; Q9967

== ENCOUNTER 2024-09-21 12:22 | Day surgery (SDC) | payer BC ==
[2024-09-21] VITALS (14 sets, daily range): BP systolic 100–136; BP diastolic 50–82
[~2024-09-21] VITALS: Ht 170.2 cm; Wt 150.3 kg
[~2024-09-21 12:22] MED LIST changes: +ALBU90OI INH; +DICY20 PO; +Dexamethasone Sod Phos 10 MG/ML 1ML VIAL ONE; +FentaNYL Citrate 50 MCG/ML 2 ML Injection ONE; +Ketorolac Tromethamine 30mg Vial ONE; +LEVSOD137 PO; +LOSA50 PO; +LOSARTAN POTAS100 MG PO; +Lactated Ringer's 1,000 ML IV SCH; +MULTI-VITAMIN1 EAC2 PO; +NYSTATIN-TRIAMC15 GM TOP; +Ondansetron HCl 2 MG / ML 2ML Vial ONE; +Ondansetron Odt8 MG MM; -SYNTHROID125 MC1 PO; +propofoL 20 ML IV ONE
[2024-09-21] MEDS ORDERED: OMEP20ER PO (12:38)
--- NOTE | 2024-09-21 12:54 | NUR ---
SPOKE TO DR FLOREZ ABOUT TYPE AND SCREEN BEING DRAWN 7 DAYS AGO. NO NEW ORDER FOR NEW TYPE AND SCREEN FOR TODAY.
[2024-09-21] MEDS ORDERED: Bupivacaine 0.5% W/EPI 1:200000 SDV 30 ML Vial ONE (13:01)
[2024-09-21] MEDS ORDERED: OxyCODONE HCL 5 MG TAB PO ONE (14:30)
[2024-09-21] MEDS ORDERED: Acetaminophen 500 MG Tab PO ONE (14:30)
--- NOTE | 2024-09-21 16:40 | NUR ---
DISCHARGE NOTE PT A&OX4, BREATHING RA, AT BEDSDIDE, TOLERATING PO INTAKE. PT MEDICATED FOR PAIN PER MD ORDERS. PT UP TO BR AND VOIDED PRIOR TO DISCHARGE. PT HAS BRB SPOTTING TO MONI PAD. PT UP AND DRESSED INDEPENDENTLY. Patient up to Ambulate independently. Gait steady. Discharge instructions reviewed with patient. Patient verbalizes understanding. Copy given to patient to take home. Discharged via wheelchair to private car for ride home.
== END 2024-09-21 16:35 | disposition home or self-care (01) ==
LOC: ORSCMMR 12:22 → ORD 14:00 → ORSCMMR 14:00
PROVIDERS: Obstetrics & Gynecology
PROC: 0UDB8ZX Extraction of Endometrium, Via Natural or Artificial Opening Endoscopic, Diagnostic (ICD-10-PCS; principal; 2024-09-21 14:00)
DX: N95.0 Postmenopausal bleeding (principal); N84.0 Polyp of corpus uteri; I10 Essential (primary) hypertension; E03.9 Hypothyroidism, unspecified; E66.01 Morbid (severe) obesity due to excess calories; Z68.43 Body mass index [BMI] 50.0-59.9, adult; Z79.899 Other long term (current) drug therapy
CPT/HCPCS: 88305; A9270; J1100; J1885; J2405; J2704; J3010; J7120

== ENCOUNTER → 2024-11-29 | Outpatient (CLI) | payer BC ==
[~2024-11-29] MED LIST changes: -Dexamethasone Sod Phos 10 MG/ML 1ML VIAL ONE; -FentaNYL Citrate 50 MCG/ML 2 ML Injection ONE; -Ketorolac Tromethamine 30mg Vial ONE; -Lactated Ringer's 1,000 ML IV SCH; +OMEP20ER PO; -Ondansetron HCl 2 MG / ML 2ML Vial ONE; -propofoL 20 ML IV ONE
== END ==
LOC: LAB 14:11 → LAB SHORT 14:11
DX: R82.81 Pyuria (principal)
CPT/HCPCS: 87086